=== PATIENT | male | born 1955 | race Caucasian/White ===

== ENCOUNTER 2017-04-26 23:31 | Emergency (ER) | payer BC ==
[~2017-04-26] VITALS: Ht 172.7 cm; Wt 79.2 kg
[2017-04-27] MEDS ORDERED: PREDNISONE20 MG PO (02:58)
[2017-04-27] MEDS ORDERED: ZITHROMAX500 MG PO (02:58)
[2017-04-27] MEDS ORDERED: FLONASE16 G1 BOTH NARES (02:59)
[2017-04-27] MEDS ORDERED: LORATADINE10 M2 PO (02:59)
[2017-04-27] MEDS ORDERED: MUCINEX D ER T1 EACH PO (02:59)
[2017-04-27 03:18] VITALS: BP 131/95
== END 2017-04-27 03:21 | disposition home or self-care (01) ==
LOC: EME 23:31 → EXP 23:31
DX: K12.2 Cellulitis and abscess of mouth (principal); J32.9 Chronic sinusitis, unspecified; Z87.891 Personal history of nicotine dependence
CPT/HCPCS: 70360; 87651 90; 99281; 99283; J7512